=== PATIENT | female | born 1955 | race Caucasian/White ===

== ENCOUNTER 2016-10-28 12:43 | Day surgery (SDC) | payer BC ==
[~2016-10-28 12:43] MED LIST: ALL220TA PO; ASPI81 PO; CALC600T34 PO; FOLI400T30 PO; METH2.5 PO; TAB-TAB PO; [UNRECOGNIZED DRUG - OTHER] PO; [UNRECOGNIZED DRUG - OTHER] PO
[2016-10-28 13:22] VITALS: BP 176/82; PULSE 81; RESP 16; TEMP 98; O2SAT 100
--- NOTE | 2016-10-28 14:36 | PD.RAD ---
Post US Procedure Prog Note Pre Procedure Diagnosis: (1) possible abnormal left axilla lymph nodes Post Procedure Diagnosis: (1) possible abnormal left axilla lymph nodes Procedure Date: Oct 28, 2016 Supervising Radiologist: Igor Farris Estimated blood loss: minimal Anesthesia: Local Plan of Activity Patient to Unit: ROPU Patient Condition: Good See PACS Report for procedural detail/treatment Biopsy Imaging Guidance: Ultrasound Side: Left Biopsy Procedure: Other Site: left axillary lymph nodes Specimen: Core Biopsy Findings: there are 3 adjacent lymph nodes in left axilla. None have abnormal morphology or size on today's ultrasound Plan to ROPU for 15 minutes then discharge. Igor Farris MD Oct 28, 2016 14:36
[2016-10-28 14:40] VITALS: BP 165/84; PULSE 73; RESP 18; TEMP 96.1; O2SAT 100
[2016-10-28] MEDS ORDERED: LIDOCAINE HCL 1% PF 30 ML VIAL ONE (14:48)
--- NOTE | 2016-10-28 14:53 | RADRPT ---
EXAM DATE/TIME: 10/28/2016 13:30 [facility] COMPARISON: No previous studies available for comparison. Outside CT and ultrasound examinations were reviewed. INDICATIONS : Enlarged left axilla lymph node. MEDICAL HISTORY : Rheumatoid arthritis. Osteomyelitis. SURGICAL HISTORY : Cardiac ablation. Foot surgery. Implants of knuckles bilateral. ENCOUNTER: Initial ACUITY: 1 yr PAIN SCORE: 1/10 LOCATION: Left axillary. ORGAN: Left lymph node SPECIMENS: Four core specimen(s) submitted for pathologic evaluation. DEVICE: 18 gauge Temno needle Post procedure scanning reveals no hematoma or other complication. The possibility does exist that the tissue obtained will be non-diagnostic. If the sample is non-cori gnostic a repeat biopsy or surgical biopsy may need to be performed. TECHNIQUE: 1. Ultrasound guidance for needle biopsy. 2. Needle biopsy. The risks, benefits, and alternatives to ultrasound guided needle biopsy were explained to the patien t in detail including the risk of bleeding and infection. Written and verbal informed consent was ob tained. With the patient on the ultrasound table, images were obtained. There are 3 adjacent abnormal size l ymph nodes in the left axilla that were targeted for biopsy. Overlying skin was prepped and draped in the usual sterile fashion and Lidocaine was utilized as a local anesthetic. A needle was advanced into the lymph nodes and the number of specimens as above obtained and submitte d for pathologic evaluation. The patient tolerated the procedure well and left the ultrasound suite in stable condition. CONCLUSION: Uncomplicated ultrasound guided needle biopsy of a left axillary lymph node. Samples were saved for p athology and microbiology analysis. Igor Farris MD on October 28, 2016 at 14:50 Board Certified Radiologist. This report was verified electronically.
[2016-10-28 15:00] VITALS: BP 156/86; PULSE 65; RESP 16; O2SAT 100
== END 2016-10-28 15:14 | disposition home or self-care (01) ==
LOC: HRAD 12:43 → HRIP 12:46 → HRAD 15:14
PROVIDERS: ATTEND Surgery
DX: R59.9 Enlarged lymph nodes, unspecified (principal); M86.9 Osteomyelitis, unspecified; M06.9 Rheumatoid arthritis, unspecified
CPT/HCPCS: 38505; 76942; 87070; 87176; 87205; 88305